=== PATIENT | male | born 1985 | race Caucasian/White ===

== ENCOUNTER 2020-11-22 11:10 | Emergency (ER) | payer OTHER ==
[~2020-11-22] VITALS: Ht 177.8 cm; Wt 95.4 kg
[2020-11-22 11:13] VITALS: BP 188/106
[2020-11-22] MEDS ORDERED: ONDANSETRON PF 4 MG/2 ML VIAL. IVP ONE (12:15)
[2020-11-22] MEDS ORDERED: FAMOTIDINE 20 MG/2 ML VIAL IVP ONE (12:15)
[2020-11-22] MEDS ORDERED: IV NORMAL SALINE 1,000ML 1,000 ML IV SCH (12:15)
[2020-11-22] MEDS ORDERED: PANTOPRAZOLE IV 40 MG VIAL. IVP ONE (12:15)
--- NOTE | 2020-11-22 12:34 | RAD ---
XR ABDOMEN 1V Clinical Indication: Reason: abd pain- lower abd pain, constipation with loose stool Comparison: None. Findings: There is no dilated small bowel. There is mild stool in the proximal colon. There is minimal stool an d air in the rectum. No obvious organomegaly. Intramedullary kenn of the left femur, incompletely imag ed. No acute bone abnormality. IMPRESSION: Nonobstructive bowel gas pattern. Electronically signed by: Gabino Higgins MD (11/22/2020 12:32 PM) [id number]
--- NOTE | 2020-11-22 12:37 | PHYS DOC ---
Past History Past Medical History: High Cholesterol, Hypertension, Other Additional Past Medical Histor: fatty liver Past Surgical History: Appendectomy, Other Additional Past Surgical Histo: hernia repair with mesh Alcohol Use: None Adult General Chief Complaint Chief Complaint: ABDOMINAL PAIN HPI HPI Patient is a 34-year-old male with a known past medical history of hyperlipidemia and hypertension now presenting to emergency department for new onset of abdominal pain. Patient is notably [facility] a [facility] recently getting out of [facility] al[facility]. Patient states over the last 2 years has had worsening episodes of primarily mid epigastric but also generalized abdominal pain in various areas with associated nausea as well as intermittent episodes of diarrhea. Patient states that on the last 3 months he feels like this is steadily progressed. Patient attempted to see the [facility] [facility] yesterday but because of the problem with scheduling appointments as it was not able to be paid for and they sent him here to get labs and initial work-up done. Patient is denying any new onset fever, back pain, chest pain or shortness of breath at this time. Review of Systems Review of Systems Constitutional: Denies fever or chills [] Eyes: Denies change in visual acuity, redness, or eye pain [] HENT: Denies nasal congestion or sore throat [] Respiratory: Denies cough or shortness of breath [] Cardiovascular: No additional information not addressed in HPI [] GI: Denies abdominal pain, nausea, vomiting, bloody stools or diarrhea [] : Denies dysuria or hematuria [] Musculoskeletal: Denies back pain or joint pain [] Integument: Denies rash or skin lesions [] Neurologic: Denies headache, focal weakness or sensory changes [] Endocrine: Denies polyuria or polydipsia [] All other systems were reviewed and found to be within normal limits, except as documented in this note. Current Medications Current Medications Current Medications Medications (Trade) Dose Ordered Sig/Tarsha Start Time Stop Time Status Last Admin Dose Admin Famotidine (Pepcid Vial) 20 mg 1X ONCE 11/22/20 12:15 11/22/20 12:16 UNV Ondansetron HCl (Zofran) 4 mg 1X ONCE 11/22/20 12:15 11/22/20 12:16 UNV Pantoprazole Sodium (Protonix Vial) 40 mg 1X ONCE 11/22/20 12:15 11/22/20 12:16 UNV Sodium Chloride 1,000 ml @ 1,000 mls/hr Q1H 11/22/20 12:15 11/22/20 13:14 UNV Allergies Allergies Allergies Coded Allergies Type Severity Reaction Last Updated Verified No Known Drug Allergies 11/22/20 No Physical Exam Physical Exam Constitutional: Well developed, well nourished, no acute distress, non-toxic appearance. [] HENT: Normocephalic, atraumatic, bilateral external ears normal, oropharynx moist, no oral exudates, nose normal. [] Eyes: PERRLA, EOMI, conjunctiva normal, no discharge. [] Neck: Normal range of motion, no tenderness, supple, no stridor. [] Cardiovascular:Heart rate regular rhythm, no murmur [] Lungs & Thorax: Bilateral breath sounds clear to auscultation [] Abdomen: Bowel sounds normal, soft, no tenderness, no masses, no pulsatile masses. [] Skin: Warm, dry, no erythema, no rash. [] Back: No tenderness, no CVA tenderness. [] Extremities: No tenderness, no cyanosis, no clubbing, ROM intact, no edema. [] Neurologic: Alert and oriented X 3, normal motor function, normal sensory function, no focal deficits noted. [] Psychologic: Affect normal, judgement normal, mood normal. [] Current Patient Data Vital Signs Vital Signs Date Time Temp Pulse Resp B/P (MAP) Pulse Ox O2 Delivery O2 Flow Rate FiO2 11/22/20 11:13 97.2 109 16 188/106 (133) 95 Room Air EKG EKG [] Radiology/Procedures Radiology/Procedures [] Heart Score C/O Chest Pain: No Risk Factors: Risk Factors: DM, Current or recent (<one month) smoker, HTN, HLP, family history of CAD, obesity. Risk Scores: Risk Factors: DM, Current or recent (<one month) smoker, HTN, HLP, family history of CAD, obesity. Course & Med Decision Making Course & Med Decision Making Pertinent Labs and Imaging studies reviewed. (See chart for details) 34-year-old male presenting to emergency department with acute on chronic abdominal pain most consistent with chronic condition like celiac or Crohn's disease or irritable bowel syndrome. Will obtain labs to make sure there is no other acute underlying etiology at this time. Labs and x-ray reviewed. No acute findings at this time. At this time will plan for discharge home with PCP follow-up Jaime Disclaimer Jaime Disclaimer This electronic medical record was generated, in whole or in part, using a voice recognition dictation system. Departure Departure: Impression: Primary Impression: Abdominal pain Disposition: 01 DC HOME SELF CARE/HOMELESS Condition: GOOD Referrals: GATO CABRERA (PCP) Patient Instructions: Abdominal Pain (Nonspecific) Additional Instructions: EMERGENCY DEPARTMENT GENERAL DISCHARGE INSTRUCTIONS Thank you for coming to [facility] Emergency Department (ED) today and trusting us with you care. We trust that you had a positive experience in our Emergency Department. If you wish to speak to the department management, you may call the Director at [phone]. YOUR FOLLOW UP INSTRUCTIONS ARE FOLLOWS: 1. Do you have a private Doctor? If you do not have a private doctor, please ask for a resource list of physicians or clinics that may be able to assist you with follow up care. 2. The Emergency Physicain has interpreted your x-rays. The X-Ray specialist will also review them. If there is a change in the findings, you will be notified in 48 hours when at all possible. 3. A lab test or culture has been done, your results will be reviewed and you will be notified if you need a change in treatment. ADDITIONAL INSTRUCTIONS AND INFORMATION: 1. Your care today has been supervised by a physician who is specially trained in emergency care. Many problems require more than one evaluation for a complete diagnosis and treatment. We recommend that you schedule your follow up appointment as recommended to ensure complete treatment of you illness or injury. If you are unable to obtain follow up care and continue to have a problem, or if your condition worsens, we recommend that you return to the ED. 2. We are not able to safely determine your condition over the phone nor are we able to give sound medical advice over the phone. For these safety reasons, if you call for medical advice we will ask you to come to the ED for further evaluation. 3. If you have any questions regarding these discharge instructions please call the ED at [phone]. SAFETY INFORMATION: In the interest of safety, wellness, and injury prevention; we encourage you to wear your sealbelt, if you smoke; quite smoking, and we encourage family to use a protective helmet for bicycling and other sporting events that present an increased risk for head injury. IF YOUR SYMPTOMS WORSEN OR NEW SYMPTOMS DEVELOP, OR YOU HAVE CONCERNS ABOUT YOUR CONDITION; OR IF YOUR CONDITION WORSENS WHILE YOU ARE WAITING FOR YOUR FOLLOW UP APPOINTMENT; EITHER CONTACT YOUR PRIMARY CARE DOCTOR, THE PHYSICIAN WHOSE NAME AND NUMBER YOU WERE GIVEN, OR RETURN TO THE ED IMMEDIATELY. Scripts Dicyclomine Hcl (BENTYL) 10 Mg/1 Ml Ampul 10 MG IM 1-2XD for abdominal pain for 30 Days, EACH Prov: KASI GOODSON MD 11/22/20 Ondansetron Hcl (ZOFRAN) 4 Mg Tablet 1 TAB PO PRN Q6HRS PRN for NAUSEA, #6 TAB Prov: KASI GOODSON MD 11/22/20 KASI GOODSON MD Nov 22, 2020 12:37
[2020-11-22 12:51] LABS: BASO % 0 % (0-3); EOS # 0.1 x10^3/uL (0.0-0.7); EOS % 1 % (0-3); HEMATOCRIT 39.8 % (39.0-53.0); HEMOGLOBIN 13.8 g/dL (13.0-17.5); LYMPH # 1.4 x10^3/uL (1.0-4.8); LYMPH % 30 % (24-48); MEAN CORPUSCULAR HEMOGLOBIN 33 pg (25-35); MEAN CORPUSCULAR HGB CONC 35 g/dL (31-37); MEAN CORPUSCULAR VOLUME 94 fL (79-100); MONO # 0.4 x10^3/uL (0.0-1.1); MONO % 9 % (0-9); NEUT # 2.8 x10^3uL (1.8-7.7); NEUT % 60 % (31-73); PLATELET COUNT 222 x10^3/uL (140-400); RED BLOOD COUNT 4.24 x10^6/uL (4.30-5.70); RED CELL DISTRIBUTION WIDTH 13.8 % (11.5-14.5); WHITE BLOOD COUNT 4.8 x10^3/uL (4.0-11.0)
[2020-11-22 13:00] LABS: CALCIUM 9.2 mg/dL (8.5-10.1); CREATININE 1.2 mg/dL (0.7-1.3); GFR 69.3; POTASSIUM 3.8 mmol/L (3.5-5.1)
[2020-11-22 13:05] LABS: ALBUMIN 4.2 g/dL (3.4-5.0); ALBUMIN/GLOBULIN RATIO 1.1 (1.0-1.7); TOTAL BILIRUBIN 0.9 mg/dL (0.2-1.0)
[2020-11-22] MEDS ORDERED: DICY10AM IM (13:40)
[2020-11-22] MEDS ORDERED: ONDA4TAB7 PO (13:40)
--- NOTE | 2020-11-23 08:58 | EKG ---
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
== END 2020-11-22 14:18 | disposition home or self-care (01) ==
LOC: ER 11:10
DX: R10.84 Generalized abdominal pain (principal); R19.7 Diarrhea, unspecified; R11.0 Nausea; E78.00 Pure hypercholesterolemia, unspecified; I10 Essential (primary) hypertension; Z90.89 Acquired absence of other organs
CPT/HCPCS: 36415; 74018; 80053; 83690; 85025; 93005; 96361; 96374; 96375; 99285; C9113; J2405; J3490; J7030

== ENCOUNTER 2020-12-10 17:40 | Emergency (ER) | payer OTHER ==
[~2020-12-10] VITALS: Ht 177.8 cm; Wt 95.4 kg
[~2020-12-10 17:40] MED LIST: DICY10AM IM; ONDA4TAB7 PO
--- NOTE | 2020-12-10 18:17 | PHYS DOC ---
Past History Past Medical History: High Cholesterol, Hypertension, Other Additional Past Medical Histor: fatty liver Past Surgical History: Appendectomy, Other Additional Past Surgical Histo: hernia repair with mesh Alcohol Use: None Adult General Chief Complaint Chief Complaint: ABDOMINAL PAIN HPI HPI Patient is a 35-year-old male with a past medical history significant for hypertension and hyperlipidemia who presents with a chief complaint of epigastric pain and pain with swallowing. States it has been going on intermittently over the last couple of months worsening over the last couple of weeks. States that any time he eats or drinks it is painful as it goes down and feels like it gets stuck. States when it gets stuck, it feels full, is painful and has some radiation to the back, 6 out of 10, dull and achy in nature. States he has an upcoming appointment with GI, in 3 days for an EGD and colonoscopy but since it worsened over the last couple of days he decided to come into the emergency department. Denies any recent travel, illnesses, traumas, fevers, chest pain, shortness of breath, hemoptysis, hematemesis, melena or hematochezia, diarrhea, dysuria or hematuria. Denies any history of heartburn. Denies any alcohol or drug use. States he is able to eat and drink, and keep it down but it causes discomfort. Not aware of any family history of anything similar. Review of Systems Review of Systems Review of systems otherwise unremarkable except noted in HPI Allergies Allergies Allergies Coded Allergies Type Severity Reaction Last Updated Verified No Known Drug Allergies 11/22/20 No Physical Exam Physical Exam Constitutional: Well developed, well nourished, no acute distress, non-toxic appearance. [] HENT: Normocephalic, atraumatic, oropharynx moist, no oral exudates Eyes: conjunctiva normal, no discharge. [] Neck: Normal range of motion, no tenderness, supple, no stridor. [] Cardiovascular:Sinus tachycardia Lungs & Thorax: Bilateral breath sounds clear to auscultation [] Abdomen: soft, epigastric tenderness, no masses, no pulsatile masses. [] Skin: Warm, dry, no erythema, no rash. [] Back: No tenderness, no CVA tenderness. [] Extremities: No tenderness, no cyanosis, no clubbing, ROM intact, no edema. [] Neurologic: Alert and oriented X 3, normal motor function, normal sensory function, no focal deficits noted. [] Psychologic: Affect normal, judgement normal, mood normal. [] Current Patient Data Vital Signs Vital Signs Date Time Temp Pulse Resp B/P (MAP) Pulse Ox O2 Delivery O2 Flow Rate FiO2 12/10/20 17:54 98.2 110 16 144/92 (109) 98 Room Air EKG EKG [] Radiology/Procedures Radiology/Procedures []FINDINGS: Heart size is normal. No pericardial effusion. Visualized lung bases are clear. No pleural effusion. Liver, spleen, pancreas, gallbladder and adrenals are unremarkable. No perinephric inflammation or hydronephrosis. No renal or ureteral calculi are identified. Bladder is partially distended and not well evaluated. Prostate is not enlarged. Large and small bowel are unremarkable. Appendix is nonidentified. No free intra-abdominal air or fluid. No obstruction. Abdominal aorta has a normal course and caliber. Abdominal vasculature is patent. No enlarged intra-abdominal lymph nodes are identified. No suspicious osseous lesions or acute fractures. IMPRESSION: No acute process identified within the abdomen or pelvis. Exposure: One or more of the following in the visualized dose reduction techniques were utilized for this examination: 1. Automated exposure control 2. Adjustment of the MA and/or KV according to patient size 3. Use of iterative of reconstructive technique Heart Score C/O Chest Pain: No Risk Factors: Risk Factors: DM, Current or recent (<one month) smoker, HTN, HLP, family history of CAD, obesity. Risk Scores: Risk Factors: DM, Current or recent (<one month) smoker, HTN, HLP, family history of CAD, obesity. Course & Med Decision Making Course & Med Decision Making Patient is a 35-year-old male who presents with odynophagia and epigastric pain Vital signs notable for tachycardia. Physical exam noted above. Patient given GI cocktail and morphine for pain. Laboratory analysis notable for mild elevation in CRP. Imaging with no acute or emergent findings. Discussed all findings with patient and recommended a light soft diet over the next few days. Also recommended beginning a PPI just in case some of his symptoms were secondary to GERD complications. Advised to keep upcoming GI appointment in 3 days for EGD and colonoscopy. Gave strict return precautions to the ED. Patient grateful, verbalized understanding and agreed with plan of discharge. Dragon Disclaimer Dragon Disclaimer This electronic medical record was generated, in whole or in part, using a voice recognition dictation system. Departure Departure: Impression: Primary Impression: Epigastric abdominal pain Additional Impression: Odynophagia Disposition: 01 DC HOME SELF CARE/HOMELESS Condition: GOOD Referrals: GATO CABRERA (PCP) Additional Instructions: You are seen in the emergency department today for pain while swallowing. Your laboratory analysis was not concerning. The CT scan of your abdomen showed no acute or emergent findings. As discussed, please begin a clear light soft diet over the next few days and begin an [id number] antiheartburn medication. You are given a prescription for lisinopril as you are almost out. Please keep your appointment with your GI doctor for your colonoscopy and EGD in 3 days. Please come back to the emergency department immediately with new or concerning symptoms as discussed. Scripts Lisinopril (LISINOPRIL) 10 Mg Tablet 1 TAB PO DAILY for HTN for 30 Days, #30 TAB 5 Refills Prov: BRENDA BASURTO MD 12/10/20 Problem Qualifiers BRENDA BASURTO MD Dec 10, 2020 18:17
[2020-12-10] MEDS ORDERED: CONTRAST GIVEN. MC PRN (18:30)
[2020-12-10] MEDS ORDERED: IOHEXOL 300 MG/ML 75 ML VIAL. IV ONE (18:30)
[2020-12-10] MEDS ORDERED: MORPHINE SULFATE 4 MG/ML DISP.SYRIN. IV ONE (18:45)
[2020-12-10] MEDS ORDERED: LIDO:MAALOX 1:1 20 ML SINGLE DOSE. PO ONE (18:45)
[2020-12-10 18:55] LABS: BASO % 0 % (0-3); EOS # 0.1 x10^3/uL (0.0-0.7); EOS % 2 % (0-3); HEMATOCRIT 40.8 % (39.0-53.0); HEMOGLOBIN 14.1 g/dL (13.0-17.5); LYMPH # 2.2 x10^3/uL (1.0-4.8); LYMPH % 34 % (24-48); MEAN CORPUSCULAR HEMOGLOBIN 32 pg (25-35); MEAN CORPUSCULAR HGB CONC 35 g/dL (31-37); MEAN CORPUSCULAR VOLUME 94 fL (79-100); MONO # 0.6 x10^3/uL (0.0-1.1); MONO % 9 % (0-9); NEUT # 3.5 x10^3uL (1.8-7.7); NEUT % 55 % (31-73); PLATELET COUNT 229 x10^3/uL (140-400); RED BLOOD COUNT 4.34 x10^6/uL (4.30-5.70); RED CELL DISTRIBUTION WIDTH 13.6 % (11.5-14.5); WHITE BLOOD COUNT 6.4 x10^3/uL (4.0-11.0)
[2020-12-10 18:57] LABS: CALCIUM 9.6 mg/dL (8.5-10.1); CREATININE 1.2 mg/dL (0.7-1.3); GFR 68.9; POTASSIUM 4.3 mmol/L (3.5-5.1)
[2020-12-10 19:03] LABS: ALBUMIN 4.1 g/dL (3.4-5.0); ALBUMIN/GLOBULIN RATIO 1.1 (1.0-1.7); C REACTIVE PROTEIN 6.8 mg/L (0-3.3)
[2020-12-10 19:12] LABS: BACTERIA,URINE 0 /HPF (0-FEW); BILIRUBIN,URINE NEG (NEG); CLARITY,URINE CLEAR; COLOR,URINE YELLOW; GLUCOSE,URINE NEG (NEG); NITRITE,URINE NEG (NEG); RBC,URINE OCC /HPF (0-2); UROBILINOGEN,URINE 0.2 mg/dL (0.2 mg/dL); WBC,URINE OCC /HPF (0-4)
--- NOTE | 2020-12-10 19:32 | RAD ---
Exam: CT of abdomen and pelvis with contrast INDICATION: Epigastric pain with radiation to back TECHNIQUE: Sequential axial images through the abdomen and pelvis obtained following the administrati on of 74 mL of Isovue-370 IV contrast. Sagittal and coronal reformatted images were reconstructed fro m the axial data and reviewed. Comparisons: None FINDINGS: Heart size is normal. No pericardial effusion. Visualized lung bases are clear. No pleural effusion. Liver, spleen, pancreas, gallbladder and adrenals are unremarkable. No perinephric inflammation or hydronephrosis. No renal or ureteral calculi are identified. Bladder is partially distended and not well evaluated. Prostate is not enlarged. Large and small bowel are unremarkable. Appendix is nonidentified. No free intra-abdominal air or flu id. No obstruction. Abdominal aorta has a normal course and caliber. Abdominal vasculature is patent. No enlarged intra-abdominal lymph nodes are identified. No suspicious osseous lesions or acute fractures. IMPRESSION: No acute process identified within the abdomen or pelvis. Exposure: One or more of the following in the visualized dose reduction techniques were utilized for this examination: 1. Automated exposure control 2. Adjustment of the MA and/or KV according to patient size 3. Use of iterative of reconstructive technique Electronically signed by: Fareed Rai MD (12/10/2020 7:29 PM) [facility]
[2020-12-10] MEDS ORDERED: LISI10TA16 PO (19:51)
[2020-12-10 19:54] VITALS: BP 136/82
== END 2020-12-10 19:53 | disposition home or self-care (01) ==
LOC: ER 17:40
DX: R10.13 Epigastric pain (principal); R13.10 Dysphagia, unspecified; I10 Essential (primary) hypertension; E78.5 Hyperlipidemia, unspecified
CPT/HCPCS: 36415; 74177; 80053; 81001; 83690; 85025; 86140; 96374; 99285; J2270; Q9967

== ENCOUNTER 2020-12-17 08:23 | Emergency (ER) | payer OTHER ==
[~2020-12-17] VITALS: Ht 177.8 cm; Wt 97.0 kg
[~2020-12-17 08:23] MED LIST changes: +LISI10TA16 PO
[2020-12-17 08:32] VITALS: BP 149/82
[2020-12-17] MEDS ORDERED: AMOX1TAB61 PO (08:57)
--- NOTE | 2020-12-17 08:57 | PHYS DOC ---
Past History Past Medical History: High Cholesterol, Hypertension, Other Additional Past Medical Histor: fatty liver Past Surgical History: Appendectomy, Hip Replacement, Other Additional Past Surgical Histo: hernia repair with mesh, ORIF left femur, ORIF R tib/fib Alcohol Use: None General Adult EDM: Chief Complaint: SKIN PROBLEM HPI: HPI: 35-year-old male presents with superficial right groin mass. The patient has had this area growing for a few days. It is more irritated in the last 24 hours. He has cleaned it thoroughly and tried to squeeze material out of it. He has gotten this a small amount of whitish-yellow material but the lesion has not shrunk in size. It is in an irritating location along the underwear line. Its not really getting bigger. The surrounding area is not erythematous. He denies fever or chills. He has had an abscess near this area in the past. He shaves his pubic hair. He has no other complaints at this time. Review of Systems: Review of Systems: Constitutional: Denies fever or chills Eyes: Denies change in visual acuity HENT: Denies nasal congestion or sore throat Respiratory: Denies cough or shortness of breath Cardiovascular: Denies chest pain or edema GI: Denies abdominal pain, nausea, vomiting, bloody stools or diarrhea : Denies dysuria Musculoskeletal: Denies back pain or joint pain Integument: 1 cm skin lesion in the right groin Neurologic: Denies headache, focal weakness or sensory changes Endocrine: Denies polyuria or polydipsia Lymphatic: Denies swollen glands Psychiatric: Denies depression or anxiety Allergies: Allergies: Allergies Coded Allergies Type Severity Reaction Last Updated Verified No Known Drug Allergies 11/22/20 No Physical Exam: PE: Constitutional: Well developed, well nourished, no acute distress, non-toxic appearance. [] HENT: Normocephalic, atraumatic, bilateral external ears normal, oropharynx moist, no oral exudates, nose normal. [] Eyes: PERRLA, EOMI, conjunctiva normal, no discharge. [] Neck: Normal range of motion, no tenderness, supple, no stridor. [] Cardiovascular:Heart rate regular rhythm, no murmur [] Lungs & Thorax: Bilateral breath sounds clear to auscultation [] Abdomen: Bowel sounds normal, soft, no tenderness, no masses, no pulsatile masses. [] Skin: 0.5 cm x 1 cm superficial lesion of the right groin, firm in consistency with no fluctuant center. Spontaneous opening at both ends. No surrounding erythema or warmth. [] Back: No tenderness, no CVA tenderness. [] Extremities: No tenderness, no cyanosis, no clubbing, ROM intact, no edema. [] Neurologic: Alert and oriented X 3, normal motor function, normal sensory function, no focal deficits noted. [] Psychologic: Affect normal, judgement normal, mood normal. [] Current Patient Data: Vital Signs: Vital Signs Date Time Temp Pulse Resp B/P (MAP) Pulse Ox O2 Delivery O2 Flow Rate FiO2 12/17/20 08:32 97.5 80 14 149/82 (104) 96 EKG: EKG: [] Radiology/Procedures: Radiology/Procedures: [] Heart Score: C/O Chest Pain: N/A Risk Factors: Risk Factors: DM, Current or recent (<one month) smoker, HTN, HLP, family history of CAD, obesity. Risk Scores: Score 0 - 3: 2.5% MACE over next 6 weeks - Discharge Home Score 4 - 6: 20.3% MACE over next 6 weeks - Admit for Clinical Observation Score 7 - 10: 72.7% MACE over next 6 weeks - Early Invasive Strategies Course & Med Decision Making: Course & Med Decision Making Pertinent Labs and Imaging studies reviewed. (See chart for details) The patient's lesion appears to be a dermal cyst. I cannot rule out mild infection with the area, so I will prescribe him antibiotics. There is no les ion to incise or drain at this time. I have recommended that if the antibiotics do not improve this he may need to see dermatology for cyst excision. He is stable for discharge at this time. I will prescribe Augmentin for 7 days. [] Dragon Disclaimer: Dragon Disclaimer: This electronic medical record was generated, in whole or in part, using a voice recognition dictation system. Departure Departure: Impression: Primary Impression: Groin cyst Disposition: HOME / SELF CARE / HOMELESS Condition: STABLE Referrals: GATO CABRERA (PCP) Patient Instructions: Epidermal Cyst, [id number] Scripts Amoxicillin/Potassium Clav (AUGMENTIN 875-125 TABLET) 1 Each Tablet 1 TAB PO BID for dermal cyst for 7 Days, #14 TAB 0 Refills Prov: DIPTI ZEPEDA DO 12/17/20 DIPTI ZEPEDA DO Dec 17, 2020 08:57
== END 2020-12-17 09:09 | disposition home or self-care (01) ==
LOC: ER 08:23
DX: L72.8 Other follicular cysts of the skin and subcutaneous tissue (principal); E78.00 Pure hypercholesterolemia, unspecified; I10 Essential (primary) hypertension
CPT/HCPCS: 99283

== ENCOUNTER 2021-01-15 03:08 | Emergency (ER) | payer OTHER ==
[~2021-01-15] VITALS: Ht 177.8 cm; Wt 90.0 kg
[~2021-01-15 03:08] MED LIST changes: +AMOX1TAB61 PO
--- NOTE | 2021-01-15 03:20 | PHYS DOC ---
Past History Past Medical History: High Cholesterol, Hypertension, Other Additional Past Medical Histor: fatty liver Past Surgical History: Appendectomy, Hip Replacement, Other Additional Past Surgical Histo: hernia repair with mesh, ORIF left femur, ORIF R tib/fib Alcohol Use: None Adult General HPI HPI Patient is a otherwise healthy 35-year-old male who presents to the emergency department with a chief complaint of feelings of dehydration and like his heart is beating hard. 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 Denies headache, chest pain, shortness of breath, abdominal pain, nausea, vomiting, dysuria, hematuria or blood in the stool. Denies any dyspnea on exertion, orthopnea, PND or edema or history of cardiovascular disease. De nies any drug use. States he does drink occasional alcohol and caffeine. States he brought in drink enough water. States currently in the ED he has no symptoms he was just watering what was going on because he has not had a chance to see his primary care physician yet. States he does smoke cigarettes and had one just before coming in the ED. Review of Systems Review of Systems Review of systems otherwise unremarkable except noted in HPI Allergies Allergies Allergies Coded Allergies Type Severity Reaction Last Updated Verified No Known Drug Allergies 12/17/20 No Physical Exam Physical Exam Constitutional: Well developed, well nourished, no acute distress, non-toxic appearance. [] HENT: Normocephalic, atraumatic, bilateral external ears normal, oropharynx moist, no oral exudates, nose normal. [] Eyes: , conjunctiva normal, no discharge. [] Neck: Normal range of motion, no tenderness, supple, no stridor. [] Cardiovascular: Sinus tachycardia Lungs & Thorax: Bilateral breath sounds clear to auscultation [] Abdomen: soft, no tenderness, no masses, no pulsatile masses. [] Skin: Warm, dry, no erythema, no rash. [] Back: no CVA tenderness. [] Extremities: No tenderness, ROM intact, no edema. [] Neurologic: Alert and oriented X 3, no focal deficits noted. [] Psychologic: Affect normal, judgement normal, mood normal. [] EKG EKG EKG with a rate of 102, QRS of 82, QTc 437, no STEMI [] Radiology/Procedures Radiology/Procedures [] Heart Score C/O Chest Pain: No Risk Factors: Risk Factors: DM, Current or recent (<one month) smoker, HTN, HLP, family history of CAD, obesity. Risk Scores: Risk Factors: DM, Current or recent (<one month) smoker, HTN, HLP, family history of CAD, obesity. Course & Med Decision Making Course & Med Decision Making Vital signs notable for sinus tachycardia. Physical exam noted above. EKG with sinus tachycardia no STEMI. Heart score of 0. Ordered labs and chest x-ray. Discussed all findings with patient and on work- up and time for work-up. Patient states he feels well here in the ED and does not want to wait for any chest x-ray or laboratory analysis and was ready to be discharged out. Discussed with patient the need for quitting smoking cigarettes which may help with his feelings of shortness of breath as he was smoking standing outside of the hospital before he came in. Advised to follow-up with his primary care physician first thing in the morning to update on ED visit and set up a follow- up visit. Gave return precautions to the ED. Patient grateful, verbalized understanding and agreed with plan of discharge. [] Dragon Disclaimer Dragon Disclaimer This electronic medical record was generated, in whole or in part, using a voice recognition dictation system. Departure Departure: Impression: Primary Impression: Heart rate problem Disposition: 01 HOME / SELF CARE / HOMELESS Condition: GOOD Referrals: GATO CABRERA (PCP) Patient Instructions: Dehydration, Adult, Heat Disorders-Brief Additional Instructions: Please read all the attached information very carefully. Please be sure to eat appropriately and drink plenty of fluids as discussed. Please follow-up with your primary care physician first thing in the morning to update on ED visit and set up a follow-up as soon as possible. Please come back to the ED with new or concerning symptoms as discussed. BRENDA BASURTO MD January 15, 2021 03:20
--- NOTE | 2021-01-15 03:29 | EKG ---
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
[2021-01-15 04:10] VITALS: BP 125/83
[2021-01-15 04:11] LABS: HEMATOCRIT 38.7 % (39.0-53.0); HEMOGLOBIN 13.2 g/dL (13.0-17.5); RED BLOOD COUNT 4.05 x10^6/uL (4.30-5.70); RED CELL DISTRIBUTION WIDTH 14.6 % (11.5-14.5); WHITE BLOOD COUNT 5.8 x10^3/uL (4.0-11.0)
[2021-01-15 04:21] LABS: CALCIUM 8.8 mg/dL (8.5-10.1); CREATININE 1.1 mg/dL (0.7-1.3); GFR 76.2; POTASSIUM 3.6 mmol/L (3.5-5.1)
== END 2021-01-15 04:10 | disposition home or self-care (01) ==
LOC: ER 03:08
DX: R00.8 Other abnormalities of heart beat (principal); R00.0 Tachycardia, unspecified; E78.00 Pure hypercholesterolemia, unspecified; I10 Essential (primary) hypertension; F17.210 Nicotine dependence, cigarettes, uncomplicated
CPT/HCPCS: 36415; 80048; 84484; 85027; 93005; 99284

== ENCOUNTER 2021-02-03 16:26 | Emergency (ER) | payer SELFPAY ==
[~2021-02-03] VITALS: Ht 177.8 cm; Wt 87.9 kg
[2021-02-03 17:20] VITALS: BP 141/86
[2021-02-03] MEDS ORDERED: LISI20TA18 PO (18:13)
--- NOTE | 2021-02-03 18:14 | PHYS DOC ---
Past History Past Medical History: High Cholesterol, Hypertension, Other Additional Past Medical Histor: fatty liver (TRAN ACKERMAN APRN) Past Surgical History: Appendectomy, Hip Replacement, Other Additional Past Surgical Histo: hernia repair with mesh, ORIF left femur, ORIF R tib/fib (TRAN ACKERMAN APRN) Alcohol Use: None (TRAN ACKERMAN APRN) Adult General Chief Complaint Chief Complaint: MEDICATION REFILL HPI HPI Patient is a 35-year-old male presents to the emergency department stating he was recently released from an area shelter house, states he no longer has access to his home medications. Patient states he would like a prescription for lisinopril 20 mg once a day. Patient has no physical complaints. Patient has no other physical concerns. (TRAN ACKERMAN APRN) Review of Systems Review of Systems 14 body systems of review of systems have been reviewed. See HPI for pertinent positives and negative responses, otherwise all other systems are negative, nonpertinent or noncontributory. (TRAN ACKERMAN APRN) Allergies Allergies Allergies Coded Allergies Type Severity Reaction Last Updated Verified No Known Drug Allergies 12/17/20 No (TRAN ACKERMAN APRN) Physical Exam Physical Exam Constitutional: Well developed, well nourished, no acute distress, non-toxic appearance. 35-year-old male in no apparent distress, triage blood pressure 140/80. HENT: Normocephalic, atraumatic, bilateral external ears normal, oropharynx moist, no oral exudates, nose normal. Eyes: PERRLA, EOMI, conjunctiva normal, no discharge. Neck: Normal range of motion, no tenderness, supple, no stridor. Cardiovascular:Heart rate regular rhythm, no murmur, heart sounds S1-S2. Lungs & Thorax: Bilateral breath sounds clear to auscultation no adventitious lung sounds appreciated. Abdomen: Bowel sounds normal, soft, no tenderness, no masses, no pulsatile masses. Skin: Warm, dry, no erythema, no rash. Back: No tenderness, no CVA tenderness. Extremities: No tenderness, no cyanosis, no clubbing, ROM intact, no edema. Neurologic: Alert and oriented X 3, normal motor function, normal sensory function, no focal deficits noted. Psychologic: Affect normal, judgement normal, mood normal. (TRAN ACKERMAN APRN) EKG EKG [] (TRAN ACKERMAN APRN) Radiology/Procedures Radiology/Procedures [] (TRAN ACKERMAN APRN) Heart Score C/O Chest Pain: No Risk Factors: Risk Factors: DM, Current or recent (<one month) smoker, HTN, HLP, family history of CAD, obesity. Risk Scores: Risk Factors: DM, Current or recent (<one month) smoker, HTN, HLP, family history of CAD, obesity. (TRAN ACKERMAN APRN) Course & Med Decision Making Course & Med Decision Making Pertinent Labs and Imaging studies reviewed. (See chart for details) 35-year-old male, vital signs reviewed, presents emergency department requesting refill of lisinopril 20 mg p.o. daily. Patient denies allergies to medications, states this is his only medication, states he needs a new physician to follow-up with since he has been released from his shelter house and no longer has access to his medications. Will prescribe lisinopril 20 mg p.o. daily, will recommend RIGO Dixon for healthcare management. Patient gave verbal understanding of discharge home instructions, prescription u se, follow-up with a primary care for ongoing blood pressure management, return to ER precautions and concerns, patient was discharged home without incident. (TRAN ACKERMAN APRN) Dragon Disclaimer Dragon Disclaimer This electronic medical record was generated, in whole or in part, using a voice recognition dictation system. (TRAN ACKERMAN APRN) Attending Co-Sign The patient was seen and interviewed as well as examined at the bedside. The chart was reviewed. The case was discussed. Agree with the plan of care. (DIPTI ZEPEDA DO) Departure Departure: Impression: Primary Impression: Medication refill Disposition: HOME / SELF CARE / HOMELESS Condition: GOOD Referrals: GATO CABRERA (PCP) Additional Instructions: I have given you a prescription for lisinopril 20 mg once a day. I have also given you a primary care provider Veto SIERRA to see for ongoing blood pressure management prescriptions. You may use any provider that you wish. Please return to the emergency department for worsening symptoms or other concerns. Scripts Lisinopril (LISINOPRIL) 20 Mg Tablet 1 TAB PO DAILY for HIGH BLOOD PRESSURE, #30 TAB 3 Refills Prov: TRAN ACKERMAN APRN 02/03/21 TRAN ACKERMAN APRN Feb 03, 2021 18:14 DIPTI ZEPEDA DO Feb 04, 2021 09:20
== END 2021-02-03 18:42 | disposition home or self-care (01) ==
LOC: ER 16:26
DX: I10 Essential (primary) hypertension (principal); E78.5 Hyperlipidemia, unspecified; Z76.0 Encounter for issue of repeat prescription
CPT/HCPCS: 99281

== ENCOUNTER 2021-03-01 09:54 | Emergency (ER) | payer OTHER ==
[~2021-03-01] VITALS: Ht 177.8 cm; Wt 87.9 kg
[~2021-03-01 09:54] MED LIST changes: +LISI20TA18 PO
[2021-03-01 12:01] LABS: BILIRUBIN,URINE NEG (NEG); CLARITY,URINE CLOUDY; COLOR,URINE YELLOW; GLUCOSE,URINE NEG (NEG); NITRITE,URINE NEG (NEG); UROBILINOGEN,URINE 0.2 mg/dL (0.2 mg/dL)
[2021-03-01 12:02] LABS: BACTERIA,URINE 0 /HPF (0-FEW); RBC,URINE OCC /HPF (0-2); SQUAMOUS EPITHELIAL CELL,UR OCC /LPF; WBC,URINE 20-40 /HPF (0-4)
--- NOTE | 2021-03-01 13:13 | RAD ---
INDICATION: Reason: testicular pain / Spl. Instructions: / History: COMPARISON: None. TECHNIQUE: Grayscale, color and spectral doppler ultrasound images obtained of the scrotum. FINDINGS: Right Testicle: 46 x 30 x 22 mm. Vascular flow is identified. Left Testicle: 45 x 29 x 24 mm. Vascular flow is identified. Small left hydrocele. IMPRESSION: * Vascular flow is identified to the bilateral testicles. * Small left hydrocele with internal echoes within which could be from mild debris. Electronically signed by: Mack Henry MD (03/01/2021 1:11 PM) [id number]
[2021-03-01] MEDS ORDERED: DOXY100T PO (14:18)
--- NOTE | 2021-03-01 14:19 | PHYS DOC ---
Past History Past Medical History: High Cholesterol, Hypertension, Other Additional Past Medical Histor: fatty liver (DANNY OSCAR APRN) Past Surgical History: Appendectomy, Hip Replacement, Other Additional Past Surgical Histo: hernia repair with mesh, ORIF left femur, ORIF R tib/fib (DANNY OSCAR APRN) Alcohol Use: None (DANNY OSCAR APRN) General Adult EDM: Chief Complaint: PAIN ON URINATION HPI: HPI: Patient is a 35-year-old male who presents to the ER today for pain with urination, penile discharge, and testicular pain for 3 weeks. Patient is concerned about a possible STI exposure. He reports that the penile discharge is white and clear and that it appears irritated with redness. Patient states "my testicles do not feel as big as they usually are and they hurt". Patient denies any testicular injury, nausea, vomiting, abdominal pain, flank pain, penile bleeding, frequency, urgency, fevers. (DANNY OSCAR APRN) Review of Systems: Review of Systems: 14 body systems of the review of systems have been reviewed. See HPI for pertinent positive and negative responses, otherwise all other systems are negative, nonpertinent or noncontributory (DANNY OSCAR APRN) Allergies: Allergies: Allergies Coded Allergies Type Severity Reaction Last Updated Verified No Known Drug Allergies 12/17/20 No (DANNY OSCAR APRN) Physical Exam: PE: Constitutional: Well developed, well nourished, no acute distress, non-toxic appearance. [] HENT: Normocephalic, atraumatic, bilateral external ears normal, nose normal. [] Eyes: PERRL, conjunctiva normal, no discharge. [] Neck: Normal range of motion, no stridor [] Cardiovascular:Heart rate regular rhythm, no murmur [] Lungs & Thorax: Bilateral breath sounds clear to auscultation [] Abdomen: Bowel sounds normal, soft, no tenderness, no masses, no pulsatile masses. [] : White penile discharge noted upon assessment. No erythema, swelling, wounds or lesions, pain noted. No swelling testicles, no high riding testes Skin: Warm, dry, no erythema, no rash. [] Back: No tenderness, no CVA tenderness. [] Extremities: No tenderness, no cyanosis, no clubbing, ROM intact, no edema. [] Neurologic: Alert and oriented X 3, normal motor function, normal sensory function, no focal deficits noted. [] Psychologic: Affect normal, judgement normal, mood normal. [] (DANNY OSCAR APRN) Current Patient Data: Labs: Laboratory Tests Test 03/01/21 11:10 Urine Collection Type Unknown Urine Color Yellow Urine Clarity Cloudy Urine pH 7.0 Urine Specific Welch 1.025 Urine Protein Trace (NEG-TRACE) Urine Glucose (UA) Neg mg/dL (NEG) Urine Ketones (Stick) Trace mg/dL (NEG) Urine Blood Neg (NEG) Urine Nitrite Neg (NEG) Urine Bilirubin Neg (NEG) Urine Urobilinogen Dipstick 0.2 mg/dL (0.2 mg/dL) Urine Leukocyte Esterase Trace (NEG) Urine RBC Occ /HPF (0-2) Urine WBC 20-40 /HPF (0-4) Urine Squamous Epithelial Cells Occ /LPF Urine Bacteria 0 /HPF (0-FEW) Urine Mucus Mod /LPF Vital Signs: Vital Signs Date Time Temp Pulse Resp B/P (MAP) Pulse Ox O2 Delivery O2 Flow Rate FiO2 03/01/21 10:20 98.9 81 20 155/96 (115) 97 (DANNY OSCAR APRN) EKG: EKG: [] (DANNY OSCAR APRN) Radiology/Procedures: Radiology/Procedures: [] (DANNY OSCAR APRN) Heart Score: C/O Chest Pain: No Risk Factors: Risk Factors: DM, Current or recent (<one month) smoker, HTN, HLP, family history of CAD, obesity. Risk Scores: Score 0 - 3: 2.5% MACE over next 6 weeks - Discharge Home Score 4 - 6: 20.3% MACE over next 6 weeks - Admit for Clinical Observation Score 7 - 10: 72.7% MACE over next 6 weeks - Early Invasive Strategies (DANNY OSCAR APRN) Course & Med Decision Making: Course & Med Decision Making Pertinent Labs and Imaging studies reviewed. (See chart for details) Patient is a 35-year-old male being evaluated in the ER today for pain with urination and penile discharge that started 3 weeks ago. A UA was performed which was negative for UTI. The urine was also sent for gonorrhea chlamydia testing and patient will be notified of results whenever they become available. Patient reports that he would like to be treated preventatively for STIs. Patient was given first dose of doxycycline and Rocephin in the ER today. Patient was discharged home with a prescription for doxycycline. Patient was educated on the need to abstain from sexual intercourse and notify all partners to be treated pending his STI testing results. He was also educated on the need to start and finish his antibiotic completely. Patient agreeable to care plan. (DANNY OSCAR APRN) Course & Med Decision Making I oversaw on the above date of service of this patient. This patient was evaluated, examined, treated, and dispositioned from the emergency department by the mid-level practitioner. I reviewed case prior to ER departure of patient and agreed to work-up and care provided. I reviewed note and agree to findings, plan of care, and disposition as stated. Electronically signed, Lindsay Lawson DO (LINDSAY LAWSON DO) Jaime Disclaimer: Jaime Disclaimer: This electronic medical record was generated, in whole or in part, using a voice recognition dictation system. (DANNY OSCAR APRN) Departure Departure: Impression: Primary Impression: Concern about STD in male without diagnosis Disposition: HOME / SELF CARE / HOMELESS Condition: GOOD Referrals: GATO CABRERA (PCP) Patient Instructions: Sexually Transmitted Disease, [id number] Additional Instructions: [place] [facility] [place] in [place] care. As we have discussed, your findings did not indicate a urinary tract infection or any problems with blood flow to your testicles. In the ER today you received a dose of an antibiotic to treat you for gonorrhea and chlamydia. as we have discussed, the treatment includes continuance of doxycycline at home. Please do not have any sexual intercourse for the next 7 days. As we discussed, your STD panel is still pending but we are preventively treating you for gonorrhea and chlamydia. We will contact you with the results of your STD panel when available in approximately 2 to 3 days. If you are positive for any sexually transmitted infections please notify your partners so that they can be treated as well. Please follow up with your primary care provider tomorrow regarding your ER visit. If your symptoms worsen or you develop fever, nausea, vomiting, severe testicular pain, chills, body aches, abdominal pain, please return. EMERGENCY DEPARTMENT GENERAL DISCHARGE INSTRUCTIONS Thank you for coming to [facility] (ED) today and trusting us with you care. We trust that you had a positivie experience in our Emergency Department. If you wish to speak to the department management, you may call the director at [phone]. YOUR FOLLOW UP INSTRUCTIONS ARE FOLLOWS: 1. Do you have a private Doctor? If you do not have a private doctor, please ask for a resource list of physicians or clinics that may be able to assist you with follo w up care. 2. The Emergency Physician has interpreted your x-rays. The X-Ray specialist will also review them. If there is a change in the findings, you will be notified in 48 hours when at all possible. 3. A lab test or culture has been done, your results will be reviewed and you will be notified if you need a change in treatment. ADDITIONAL INSTRUCTIONS AND INFORMATION: 1. Your care today has been supervised by a physician who is specially trained in emergency care. Many problems require more than one evaluation for a complete diagnosis and treatment. We recommend that you schedule your follow up appointment as rec ommended to ensure complete treatment of you illness or injury. If you are unable to obtain follow up care and continue to have a problem, or if your condition worsens, we recommend that you return to the ED. 2. We are not able to safely determine your condition over the phone nor are we able to give sound medical advice over the phone. For these safety reasons, if you call for medical advice we will ask you to come to the ED for further evaluation. 3. If you have any questions regarding these discharge instructions please call the ED at [phone]. SAFETY INFORMATION: In the interest of safety, wellness, and injury prevention; we encourage you to wear your sealbelt, if you smoke; quite smoking, and we encourage family to use a protective helmet for bicycling and other sporting events that present an increased risk for head injury. IF YOUR SYMPTOMS WORSEN OR NEW SYMPTOMS DEVELOP, OR YOU HAVE CONCERNS ABOUT YOUR CONDITION; OR IF YOUR CONDITION WORSENS WHILE YOU ARE WAITING FOR YOUR FOLLOW UP APPOINTMENT; EITHER CONTACT YOUR PRIMARY CARE DOCTOR, THE PHYSICIAN WHOSE NAME AND NUMBER YOU WERE GIVEN, OR RETURN TO THE ED IMMEDIATELY. Scripts Doxycycline Hyclate (DOXYCYCLINE HYCLATE) 100 Mg Tablet 1 TAB PO BID for sti treatment for 7 Days, #14 TAB 0 Refills Prov: DANNY OSCAR APRN 03/01/21 DANNY OSCAR APRN Mar 01, 2021 14:19 LINDSAY LAWSON DO Mar 02, 2021 06:35
[2021-03-01] MEDS: DOXYCYCLINE HYCLATE 100 MG TABLET PO ONE (14:22)
[2021-03-01 14:25] VITALS: BP 168/64
== END 2021-03-01 14:30 | disposition home or self-care (01) ==
LOC: ER 09:54
DX: A64 Unspecified sexually transmitted disease (principal); E78.5 Hyperlipidemia, unspecified; I10 Essential (primary) hypertension
CPT/HCPCS: 36415; 76870; 81001; 87491; 87591; 96372; 99284; J0696